=== PATIENT | male | born 1980 | race Caucasian/White ===

== ENCOUNTER 2020-11-30 23:14 | Emergency (ER) | payer SELFPAY ==
--- NOTE | 2020-11-30 23:18 | W.ED.GENAD ---
Discharge Plan Disposition Patient Disposition: HOME Condition: Good Discharge Details Clinical Impression: Opiate overdose Primary Care Provider: None,None ED Provider: Garrett Langston Home Meds and New Rx's Prescriptions: No Action No Known Home Meds RF: 0 Discharge Instructions Instructions: Naloxone (Into the nose) Additional Instructions: Please avoid using any opiates in the future as this may certainly lead to loss of life, permanent disability, or other concerning things. Please use the resources provided contact counseling and rehab services. If you notice any worsening of your symptoms, or any new symptoms such as vomiting, diarrhea, fever, chills, shortness of breath, chest pain, numbness, weakness, or fainting , please return immediately to the emergency department for reevaluation. Please follow up with your primary care provider as soon as possible for reassessment and reevaluation. As always, it was a pleasure participating in your medical care today. Medical Decision Making This is a 40-year-old male with past medical history of alcohol and drug abuse who presents today via EMS after accidental overdose. Per EMS the patient was found at his sister's house. He had just left to purposely go get some heroin which she injected IV. His sister found him not breathing, 911 was called. Police gave 8 mg of intranasal Narcan, by the time EMS arrived the patient was breathing mentating well. Patient also admits to some alcohol but denies any other drug use. He denies any suicidal or homicidal ideations at this time. He does state that he just wants to feel numb, just wants to feel nothing. He is otherwise a poor historian and not overweight forthcoming. No other complaints at this time. Physical exam is unremarkable. Patient is neurologically intact. He does appear mildly intoxicated. No evidence of respiratory depression at all. EMS and stated that the sister did not want him back at her house tonight. Patient is refusing all labs, IVs, and interventions. He states he does not want any help at this time. Patient was wanted by the plaster applicator and he was found to have no concerning possessions. We will breathalyzed the patient. Clinically he remained stable at this time. No clinical evidence of infectious etiology, vital notably stable. No clinical evidence of meningitis. No current clinical evidence of other significant overdose etiology at this time. Again patient is deemed stable currently clinically on medical screening exam, patient is refusing all other intervention otherwise. 1:44 AM Patient's laboratory work-up has returned. Relatively unremarkable. No white count, bandemia or left shift. Electrolytes are stable, renal function good. Salicylates are relatively benign at 4.6, acetaminophen negative. Urine drug screen negative aside for THC. Patient likely took synthetic fentanyl. Alcohol level was 106 at 2354. Patient remained stable. The patient has continued to refuse any other interventions. For the meantime we will let him sleep and rest in the ED, and discharge in the morning after reassessment. He has been offered Narcan to go. We will place an outpatient follow-up recommendation with [facility]. 5:17 AM Patient was reassessed, he remains neurologically intact. Shows no signs of intoxication clinically, or any signs of residual drug effect. Patient denies any homicidal or suicidal ideations. I did offer Narcan to go home. I did offer to contact someone for him, and he requested that I call no one. Patient remained stable. Patient will be discharged home. The patient is able to speak clearly. There is no demonstration of any slurring of speech. There is evidence of clear decision making capacity. Patient is able to ambulate well without any difficulty. There are no signs of ataxia or stumbling motions. I have extensively reviewed the treatment plan and discharge instructions with the patient. I have addressed all patient concerns at this time. The patient was made aware of what symptoms to monitor for that would warrant a return to the emergency department. Discussed the plan with the patient, they demonstrate verbal understanding and agreement with our assessment and plan at this time. The documentation in this chart was dictated using [employer] dictation software. Please excuse any dictation errors. HPI General Date/Time Provider Initiated Documentation: 12/01/20 01:02. HPI Narrative: This is a 40-year-old male with past medical history of alcohol and drug abuse who presents today via EMS after accidental overdose. Per EMS the patient was found at his sister's house. He had just left to purposely go get some heroin which she injected IV. His sister found him not breathing, 911 was called. Police gave 8 mg of intranasal Narcan, by the time EMS arrived the patient was breathing mentating well. Patient also admits to some alcohol but denies any other drug use. He denies any suicidal or homicidal ideations at this time. He does state that he just wants to feel numb, just wants to feel nothing. He is otherwise a poor historian and not overweight forthcoming. No other complaints at this time. Related Data Home Medications Medication Instructions Recorded Confirmed Unknown [No Known Home Meds] 12/01/20 12/01/20 Allergies Allergy/AdvReac Type Severity Reaction Status Date / Time No Known Allergies Allergy Unverified 12/01/20 01:46 Review of Systems All systems reviewed & are unremarkable except as noted in HPI and below PFSH Social History Smoking/Tobacco Use Status: Current every day Tobacco Type: cigarettes Smoking risk assessment performed?: Yes Alcohol Intake: current Alcohol Intake frequency: a few times a week Drug use: Occasionally Substance use type: heroin Additional Social history: Currently homeless, Sister will not let patient stay with her. Exam Narrative Exam Narrative: 1.Const: Well-nourished, Well-developed, appearing stated age 2.Eyes: PERRL, no conjunctival injection, and symmetrical lids. 3.ENT: Atraumatic external nose and ears. Dry MM. Neck: Symmetric, trachea midline, No thyromegaly. 4.CVS: +S1/S2, No murmurs or gallops. Peripheral pulses 2+ and equal in all extremities. Brisk capillary refill in all extremities. 5.RESP: Unlabored respiratory effort. Clear to auscultation bilaterally. No wheezes rales or rhonchi 6.GI: Soft, Nontender/Nondistended, No hepatosplenomegaly. No guarding or rebound. 7.MSK: Normocephalic/Atraumatic, Extremities w/o deformity or ttp No cyanosis or clubbing, Normal movement of all extremities 8.Skin: Warm, Dry. No rashes or lesions. 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 Sensation grossly intact, no focal neurologic deficits. 10.Psych: (AAO) x3. Somewhat flat affect. Appears mildly intoxicated
[2020-11-30 23:20] VITALS: BP 120/75; PULSE 95; RESP 18; TEMP 36.6; O2SAT 99
[2020-11-30] MEDS: Ondansetron O.D.T. 4 MG TABEF PO (23:40)
[2020-12-01] VITALS (8 sets, daily range): BP systolic 108–115; BP diastolic 50–65; PULSE 80–89; RESP 16–19; TEMP 36.5; O2SAT 95–98
--- NOTE | 2020-12-01 | NUR.NOTE ---
Nursing Note:Patient was wand'ed by security, no dangerous objects found . Patient unable to blow long enough to do breathalyzer. Patient refused lab draw earlier but now agrees to it. States he just needs to rest. Per EMS sister will not let patient go back to her house. Patient has been homeless.
[2020-12-01 00:08] LABS: Abs Immature Grans 0.03 10^3/uL (0.0-0.06); Absolute Basophil Count 0.05 10^3/uL (0.0-0.2); Absolute Eosinophil Count 0.21 10^3/uL (0.0-0.7); Absolute Lymphocyte Count 3.49 10^3/uL (1.2-3.4); Absolute Monocyte Count 0.89 10^3/uL (0.1-0.8); Absolute Neutrophil Count 5.05 10^3/uL (1.2-6.7); Basophils % 0.5; Eosinophils % 2.2; HCT 42.6 % (40.0-50.0); HGB 14.1 g/dL (13.5-17.5); Immature Grans % 0.3; Lymphocytes % 35.9; MCH 29.4 pg (27.0-33.0); MCHC 33.1 % (32.0-36.0); MCV 88.9 fL (80-95); Monocytes % 9.2; Neutrophils % 51.9; Nucleated RBC 0 %; Platelet Count 309 10^3/uL (130-400); RBC 4.79 10^6/uL (4.36-5.78); RDW 12.4 % (11.8-14.1); RDW-SD 40.8 fL; WBC 9.72 10^3/uL (4.4-10.8)
[2020-12-01 00:16] LABS: ALT 26 U/L (16-63); AST 41 U/L (15-37); Alkaline Phosphatase 67 U/L (46-116); Anion Gap 10.6 mmol/L (3-11); BUN 7 mg/dL (7-18); Bilirubin, Total 0.2 mg/dL (0.2-1.0); CO2 28.4 mmol/L (21.0-32.0); CREATININE 1.3 mg/dL (0.70-1.30); Calcium 8.8 mg/dL (8.5-10.1); Chloride 107 mmol/L (98-107); ETHANOL BLOOD 106.5 mg/dL (<3); Glucose 94 mg/dL (74-106); Potassium 4.2 mmol/L (3.5-5.1); Sodium 146 mmol/L (136-145); Total Protein 6.8 g/dL (6.4-8.2)
[2020-12-01 00:24] LABS: Acetaminophen < 2 ug/mL (10-30); Salicylate 4.6 mg/dL (<2.8)
[2020-12-01 01:36] LABS: *AMPHETAMINES SCREEN URINE Negative (Negative); *BARBITURATES SCREEN URINE Negative (Negative); *BENZODIAZEPINES SCREEN URINE Negative (Negative); Cannabinoids THC Positive (Negative); Cocaine Screen,Urine Negative (Negative); METHADONE URINE SCREEN Negative (Negative); OPIATES URINE SCREEN Negative (Negative)
[2020-12-01 01:38] LABS: Tricyclic Antidepressants Negative (Negative)
--- NOTE | 2020-12-01 01:47 | NUR.NOTE ---
Nursing Note:Patient has now removed the monitor and does not want it put back on. Discussed POC with Dr. Langston, will let patient sleep and D/C in AM prior to shift change.
--- NOTE | 2020-12-01 06:15 | NUR.NOTE ---
Nursing Note: Patient was given [facility] 2 Pack of Narcan TO GO at no charge. Paperwork was filled out as much as possible
== END 2020-12-01 06:06 | disposition home or self-care (01) ==
PROVIDERS: Emergency Provider Student in an Organized Health Care Education/Training Program
DX: T40.1X1A Poisoning by heroin, accidental (unintentional), initial encounter (principal)
CPT/HCPCS: 36415; 80053; 80307; 99285; 80320; 80329; 85025; 99283

== ENCOUNTER 2020-12-01 11:43 | Emergency (ER) | payer SELFPAY ==
[2020-12-01 11:47] VITALS: BP 133/84; PULSE 81; RESP 16; TEMP 36.6; O2SAT 98
--- NOTE | 2020-12-01 11:47 | ED.GENADUL_ITS ---
Discharge Plan Disposition Patient Disposition: HOME Condition: Stable Discharge Details Clinical Impression: Major depression, Opiate addiction Primary Care Provider: None,None ED Provider: Yari Monteiro Home Meds and New Rx's Prescriptions: No Action No Known Home Meds RF: 0 Discharge Instructions Instructions: Depression (ED) Additional Instructions: Follow-up with [facility] human services regarding plans for possible rehab at [facility] or for counseling and therapy and potential medication management for depression or substance abuse. Follow-up with the [facility] instructional technology coach as directed. Return immediately to the emergency department if you develop any worsening or new concerning symptoms. Discharge Data Discharge Date/Time-TO BE ENTERED AT DEPARTURE: 12/01/20 16:29 Discharge Physician: Yari Monteiro Medical Decision Making 1155 -- 40-year-old male with a history of depression and opiate overdose this morning for which he was seen in the ED presents for suicidal thoughts for the past few years and feeling suicidal this morning with a plan to overdose intentionally on opiates before his sister found him and EMS gave Narcan. Patient states he was brought here by his family due to their concern for his depression, opiate use and suicide attempt this morning. Patient states he is voluntary and open to staying if recommended. Vitals within normal limits. Patient is awake and alert and does not appear intoxicated. Screening labs obtained and unremarkable. Alcohol level negative. UDS positive for THC. Will call mental health for evaluation. 1330 -- Case discussed with Juan for mental health. -She states patient is denying that he is suicidal and would rather not pursue inpatient hospitalization. She is going to attempt to see if there are any care beds available. Patient states his cell phone is at his sister's house and she kicked him out of there. Discussed with care management and they will attempt to reach his sister or other family members. Discussed again with Juan Elizabeth --she spoke with family members who state they are concerned about patient's mental wellbeing and concerned that he may have schizophrenia. They are willing to take patient home this weekend if possible. Juan is going to pursue possible placement to [place], whether as an inpatient if pt willing or as an outpatient if he is not willing to stay. I attempted to speak with patient in the room and he was asleep. I awoke patient and requested that he place a mask. Patient then refused to open his eyes and answer my questions. When I tapped patient on his knee and attempted to wake him he slapped my hand away and said do not touch me . This was discussed with Juan Elizabeth who will discuss with Yuko whether an EE needs to be completed. 153 -- Juan he states that there are not enough indications to hold patient for an EE. She is attempting to reach [facility] to speak to patient. Patient is demanding to have his clothes. He was yelling at staff to get his stuff and a code reinier was called. He was reevaluated again in the doorway and was calm and cooperative and code hills cleared without any need for physical or pharmacological intervention. He states he is currently not suicidal and states he did not attempt to kill himself with his drug overdose this morning. He is declining to speak to the instructional technology coach who is now currently here in the ED. Patient was given his clothes and advised to follow-up with [facility] instructional technology coach. Mental health and care management will also follow-up with patient and potentially referral to [facility] or [facility]. Pt states he is going to [facility] at his uncle's house. Medical Records Medical records reviewed: Yes I reviewed the patient's medical records. Lab Data Lab results reviewed: Yes I reviewed the patient's lab results. Labs: Laboratory Tests Range/Units 12/01/20 12/01/20 12/01/20 12:10 12:10 12:20 WBC (4.4-10.8) 10^3/uL RBC (4.36-5.78) 10^6/uL Hgb (13.5-17.5) g/dL Hct (40.0-50.0) % MCV (80-95) fL MCH (27.0-33.0) pg MCHC (32.0-36.0) % RDW (11.8-14.1) % Plt Count (130-400) 10^3/uL MPV (8.0-11.0) fL Immature Gran % Neutrophils % Lymphocytes % Monocytes % Eosinophils % Basophils % Nucleated RBC % % Absolute Neutrophils (1.2-6.7) 10^3/uL Absolute Lymphocytes (1.2-3.4) 10^3/uL Absolute Monocytes (0.1-0.8) 10^3/uL Absolute Eosinophils (0.0-0.7) 10^3/uL Absolute Basophils (0.0-0.2) 10^3/uL Sodium (136-145) mmol/L 141 Potassium (3.5-5.1) mmol/L 4.0 Chloride (98-107) mmol/L 102 Carbon Dioxide (21.0-32.0) mmol/L 30.0 Anion Gap (3-11) mmol/L 9.0 BUN (7-18) mg/dL 5 L Creatinine (0.70-1.30) mg/dL 1.2 Estimated GFR/1.73 m2 (mL/min/1.73m2) >= 60.00 Glucose (74-106) mg/dL 116 H Calcium (8.5-10.1) mg/dL 9.2 Total Bilirubin (0.2-1.0) mg/dL 0.5 AST (15-37) U/L 48 H ALT (16-63) U/L 29 Alkaline Phosphatase (46-116) U/L 68 Total Protein (6.4-8.2) g/dL 7.2 Albumin (3.4-5.0) g/dL 4.3 Urine Color (Yellow) Yellow Urine Clarity (Clear) Clear Urine pH (5-8) 7.5 Ur Specific [place] (1.005-1.025) 1.020 Urine Protein (Negative) mg/dL Negative Urine Ketones (Negative) mg/dL Negative Urine Blood (Negative) Negative Urine Nitrite (Negative) Negative Urine Bilirubin (Negative) Negative Urine Urobilinogen (Up TO 0.2) EU/dL 1.0 H Ur Leukocyte Esterase (Negative) Negative Urine Glucose (Negative) mg/dL Negative Urine Opiates Screen (Negative) Negative Urine Methadone Screen (Negative) Negative Ur Barbiturates Screen (Negative) Negative Ur Tricyclics Screen (Negative) Negative Ur Amphetamines Screen (Negative) Negative U Benzodiazepines Scrn (Negative) Negative Urine Cocaine Screen (Negative) Negative Ur THC Screen (Negative) Positive A Ethyl Alcohol (<3) mg/dL 3.0 Range/Units 12/01/20 12:20 WBC (4.4-10.8) 10^3/uL 11.04 H RBC (4.36-5.78) 10^6/uL 4.96 Hgb (13.5-17.5) g/dL 14.6 Hct (40.0-50.0) % 43.9 MCV (80-95) fL 88.5 MCH (27.0-33.0) pg 29.4 MCHC (32.0-36.0) % 33.3 RDW (11.8-14.1) % 12.5 Plt Count (130-400) 10^3/uL 320 MPV (8.0-11.0) fL 8.8 Immature Gran % 0.2 Neutrophils % 47.9 Lymphocytes % 38.9 Monocytes % 11.1 Eosinophils % 1.4 Basophils % 0.5 Nucleated RBC % % 0 Absolute Neutrophils (1.2-6.7) 10^3/uL 5.29 Absolute Lymphocytes (1.2-3.4) 10^3/uL 4.29 H Absolute Monocytes (0.1-0.8) 10^3/uL 1.23 H Absolute Eosinophils (0.0-0.7) 10^3/uL 0.15 Absolute Basophils (0.0-0.2) 10^3/uL 0.06 Sodium (136-145) mmol/L Potassium (3.5-5.1) mmol/L Chloride (98-107) mmol/L Carbon Dioxide (21.0-32.0) mmol/L Anion Gap (3-11) mmol/L BUN (7-18) mg/dL Creatinine (0.70-1.30) mg/dL Estimated GFR/1.73 m2 (mL/min/1.73m2) Glucose (74-106) mg/dL Calcium (8.5-10.1) mg/dL Total Bilirubin (0.2-1.0) mg/dL AST (15-37) U/L ALT (16-63) U/L Alkaline Phosphatase (46-116) U/L Total Protein (6.4-8.2) g/dL Albumin (3.4-5.0) g/dL Urine Color (Yellow) Urine Clarity (Clear) Urine pH (5-8) Ur Specific [place] (1.005-1.025) Urine Protein (Negative) mg/dL Urine Ketones (Negative) mg/dL Urine Blood (Negative) Urine Nitrite (Negative) Urine Bilirubin (Negative) Urine Urobilinogen (Up TO 0.2) EU/dL Ur Leukocyte Esterase (Negative) Urine Glucose (Negative) mg/dL Urine Opiates Screen (Negative) Urine Methadone Screen (Negative) Ur Barbiturates Screen (Negative) Ur Tricyclics Screen (Negative) Ur Amphetamines Screen (Negative) U Benzodiazepines Scrn (Negative) Urine Cocaine Screen (Negative) Ur THC Screen (Negative) Ethyl Alcohol (<3) mg/dL HPI General Mode of arrival: ambulatory . Date/Time Provider Initiated Documentation: 12/01/20 11:44 . Limitations to Documentation: no limitations . Information obtained by: patient . HPI Narrative: Patient is a 40-year-old male with a history of depression and opiate abuse who presents for depression and suicidal ideation. Patient was seen here very early this morning for opiate overdose and was given Narcan in the field, observed and was awake and alert prior to discharge. Per the provider notes, patient denied any suicidal ideation at that time but states he is presenting today at the encouragement and advice of his family for his depression. Patient is now stating that he intentionally overdosed earlier this morning in an attempt to kill himself. He does admit to a previous suicide attempt several years ago with opiate overdose. He states he has been feeling depressed since his mother's 3 years ago. Patient states he was on his sister's porch this morning when he smoked fentanyl and his sister found him unresponsive and not breathing and he was given Narcan per EMS. Patient arrived to the ED awake and alert. Patient states he drinks alcohol occasionally and that he drinks 3 beers last night. Also smokes marijuana daily. He denies any homicidal ideation. He denies any visual or auditory hallucinations. Related Data Home Medications Medication Instructions Recorded Confirmed Unknown [No Known Home Meds] 12/01/20 12/01/20 Allergies Allergy/AdvReac Type Severity Reaction Status Date / Time No Known Allergies Allergy Unverified 12/01/20 11:56 General LEXI: 2 Review of Systems All systems reviewed & are unremarkable except as noted in HPI and below Constitutional Constitutional: Reports as per HPI, Denies chills and Denies fever(s) Eyes Eyes: Denies blurry vision ENT Ears, Nose, Mouth, and Throat: Denies dizziness, Denies sore throat and Denies throat swelling Cardiovascular Cardiovascular: Denies chest pain and Denies dyspnea Respiratory Respiratory: Denies cough and Denies dyspnea Gastrointestinal Gastrointestinal: Denies abdominal pain, Denies diarrhea and Denies vomiting Genitourinary Genitourinary: Denies hematuria and Denies dysuria Musculoskeletal Musculoskeletal: Denies back pain and Denies numbness Integumentary/Breasts Skin/Breast: Denies lesions and Denies rash Neurologic Neurologic: Denies dizziness, Denies localized weakness and Denies numbness Psychiatric Psychiatric: Reports depression and Reports suicidal ideation Allergic/Immunologic Allergic/Immunologic: Denies throat swelling [facility] Medical History (Updated 12/01/20 @ 16:06 by Yari Monteiro DO) Depression Opiate overdose Surgical History (Updated 12/01/20 @ 12:16 by Yari Monteiro DO) No significant past surgical history Social History Smoking/Tobacco Use Status: Current every day Tobacco Type: cigarettes Smoking risk assessment performed?: Yes Alcohol Intake: current Alcohol Intake frequency: a few times a week Drug use: Occasionally Substance use type: marijuana, crack/cocaine, heroin and opiates Details: last fentanyl 0030 this am Additional Social history: Currently homeless, Sister will not let patient stay with her. Exam Const General: cooperative and no acute distress Orientation: alert, awake and oriented x3 HENMT Head: normal to inspection Face and sinus: normal facial exam Eyes General: appearance normal, both eyes and all related structures Pupils: PERRL EOM: EOM intact bilaterally Neck Neck: normal visual inspection and No submandibular swelling Lymphatic: no lymphadenopathy noted Chest Chest: normal inspection of the chest and no tenderness Resp Effort & Inspection: normal respiratory effort and able to speak in complete sentences Auscultation: clear to auscultation bilaterally Cardio Rate: regular rate Rhythm: regular rhythm GI Inspection: normal to inspection Palpation: soft, not firm, not rigid and nontender Auscultation: normal bowel sounds Skin General skin exam: no rashes or lesions noted Neuro General: patient alert, patient awake and patient oriented x3 Cognition: normal cognition Speech: speech normal Motor: muscle tone normal throughout Sensory Exam: no sensory deficits noted Extrem General: normal to inspection, full ROM, capillary refill normal, no calf tenderness bilaterally and no edema Psych Appearance: grossly normal Mental Status: mental status grossly normal Speech and Movement: speech and movement normal Affect: normal affect
[2020-12-01 12:16] LABS: Bilirubin Negative (Negative); Blood Negative (Negative); Clarity Clear (Clear); Glucose Negative (Negative); Ketones Negative (Negative); Leukocyte Esterase Negative (Negative); Nitrite Negative (Negative); pH 7.5 (5-8)
[2020-12-01 12:24] LABS: Abs Immature Grans 0.02 10^3/uL (0.0-0.06); Absolute Basophil Count 0.06 10^3/uL (0.0-0.2); Absolute Eosinophil Count 0.15 10^3/uL (0.0-0.7); Absolute Neutrophil Count 5.29 10^3/uL (1.2-6.7); Basophils % 0.5; Eosinophils % 1.4; HCT 43.9 % (40.0-50.0); HGB 14.6 g/dL (13.5-17.5); Immature Grans % 0.2; Lymphocytes % 38.9; MCH 29.4 pg (27.0-33.0); MCHC 33.3 % (32.0-36.0); MCV 88.5 fL (80-95); MPV 8.8 fL (8.0-11.0); Monocytes % 11.1; Neutrophils % 47.9; Nucleated RBC 0 %; Platelet Count 320 10^3/uL (130-400); RBC 4.96 10^6/uL (4.36-5.78); RDW 12.5 % (11.8-14.1); RDW-SD 40.5 fL; WBC 11.04 10^3/uL (4.4-10.8)
[2020-12-01 12:32] LABS: Absolute Lymphocyte Count 4.29 10^3/uL (1.2-3.4); Absolute Monocyte Count 1.23 10^3/uL (0.1-0.8)
[2020-12-01 12:37] LABS: ALT 29 U/L (16-63); AST 48 U/L (15-37); Albumin 4.3 g/dL (3.4-5.0); Alkaline Phosphatase 68 U/L (46-116); BUN 5 mg/dL (7-18); Bilirubin, Total 0.5 mg/dL (0.2-1.0); CREATININE 1.2 mg/dL (0.70-1.30); Calcium 9.2 mg/dL (8.5-10.1); Chloride 102 mmol/L (98-107); Glucose 116 mg/dL (74-106); Sodium 141 mmol/L (136-145); Total Protein 7.2 g/dL (6.4-8.2)
[2020-12-01 12:38] LABS: *AMPHETAMINES SCREEN URINE Negative (Negative); *BARBITURATES SCREEN URINE Negative (Negative); *BENZODIAZEPINES SCREEN URINE Negative (Negative); Cannabinoids THC Positive (Negative); Cocaine Screen,Urine Negative (Negative); METHADONE URINE SCREEN Negative (Negative); OPIATES URINE SCREEN Negative (Negative); Tricyclic Antidepressants Negative (Negative)
--- NOTE | 2020-12-01 13:27 | NUR.NOTE ---
pt is speaking via zoom to [place] Note:
--- NOTE | 2020-12-01 15:09 | NUR.NOTE ---
Pt lying on left side in bed. PRIYANK called to speak to pt. Pt not answering when his name is called. Touched his knee to wake him if sleeping, pt did not open eyes and loudly states do not touch me. advised him PRIYANK was on the phone to speak to him, refused to answer again. Dr Thania elena.
--- NOTE | 2020-12-01 15:43 | NUR.NOTE ---
patient got very upset when doctor and nurse touched him to try to talk to him and to talk to nk . states dont touch me Nursing Note:
--- NOTE | 2020-12-01 16:07 | NUR.NOTE ---
theron field called when pt came to the door demanding his clothes , verbal de escalation was used , pt did respond and backed down but he still demanded his clothes . he mello that he planned to walk to [facility] to his uncles house . he spoke with the ER MD and was given back his clothes Nursing Note:
--- NOTE | 2020-12-01 16:18 | NUR.NOTE ---
pt bryant lentz was notified by phone that pt has left the hospitalNursing Note:
--- NOTE | 2020-12-01 19:11 | PDOC.MHCN_ITS ---
Date of service: 12/01/20 Time of Service: 12:52 Mental Health Crisis Note Presenting Issue How did you arrive at the ED and why did you come: Patient arrived at the ER due to having thoughts of SI. Precipitating Factors Patient shared that he wanted to get help for substance use but was not willing to go inpatient due to being locked in. Patient denies SI/HI to this fiction and nonfiction writer prose and stated that he doesn't want to anymore Patent stated this mornings overdose scared him. Patient agreed to complete opening paperwork with this fiction and nonfiction writer prose. Patient shared that he does not have a place to live because he was kicked out of his sisters home today. this fiction and nonfiction writer prose discussed other supports patient may have, patient was not able to come up with other supports as he stated he did not have his phone with him. This fiction and nonfiction writer prose asked that patient work with career transition specialist to get contact info for family so we can create a plan for safety and discuss how to get patient the support he needs. This fiction and nonfiction writer prose planned to contact community supports and will connect with patient after getting contact numbers. This fiction and nonfiction writer prose spoke with patients doctor and found out that client had family that was willing to support him as long as he was going to get help as they had many other mental health concerns for patient, but nothing documented. This fiction and nonfiction writer prose tried to speak with patient again to discuss the possibility of [facility] for med evaluation. Patient stated he would not talk to this fiction and nonfiction writer prose. when the doctor when in to speak with him he slapped her hand away and stated don't talk to me This fiction and nonfiction writer prose and the doctor spoke about EE, this fiction and nonfiction writer prose shared that at this time we don't have enough for and EE.landscaping manager shared that Daysi mckenzie [facility] was coming out to see patient, this fiction and nonfiction writer prose and doctor discussed waiting to see if patient would speck with recovery before moving forward with any plans. Patients doctor and career transition specialist agreed. This fiction and nonfiction writer prose called back hour later to check in and see if any progress was made. This fiction and nonfiction writer prose was informed that patient had been discharged and went home with his Uncle. (no safety plan was made by this fiction and nonfiction writer prose before patient left.) Disposition BEHAVIOR: cooperative EYE CONTACT: good MOOD: calm AFFECT: broad APPETITE: poor SLEEP(trouble falling/staying asleep: doesnt sleep Plan Patient was discharged with out this writers knowledge. Signature Clinician's Name/Title: Juan PEREZ
--- NOTE | 2020-12-01 19:11 | PDOC.MHCN ---
Date of service: 12/01/20 Time of Service: 12:52 Mental Health Crisis Note Presenting Issue How did you arrive at the ED and why did you come: Patient arrived at the ER due to having thoughts of SI. Precipitating Factors Patient shared that he wanted to get help for substance use but was not willing to go inpatient due to being locked in. Patient denies SI/HI to this journalists and other writers and stated that he doesn't want to anymore Patent stated this mornings overdose scared him. Patient agreed to complete opening paperwork with this journalists and other writers. Patient shared that he does not have a place to live because he was kicked out of his sisters home today. this journalists and other writers discussed other supports patient may have, patient was not able to come up with other supports as he stated he did not have his phone with him. This journalists and other writers asked that patient work with ocular care technician to get contact info for family so we can create a plan for safety and discuss how to get patient the support he needs. This journalists and other writers planned to contact community supports and will connect with patient after getting contact numbers. This journalists and other writers spoke with patients doctor and found out that client had family that was willing to support him as long as he was going to get help as they had many other mental health concerns for patient, but nothing documented. This journalists and other writers tried to speak with patient again to discuss the possibility of [facility] [place] for med evaluation. Patient stated he would not talk to this journalists and other writers. when the doctor when in to speak with him he slapped her hand away and stated don't talk to me This journalists and other writers and the doctor spoke about EE, this journalists and other writers shared that at this time we don't have enough for and EE.land manager shared that Daysi mckenzie [facility] was coming out to see patient, this journalists and other writers and doctor discussed waiting to see if patient would speck with recovery before moving forward with any plans. Patients doctor and ocular care technician agreed. This journalists and other writers called back hour later to check in and see if any progress was made. This journalists and other writers was informed that patient had been discharged and went home with his Uncle. (no safety plan was made by this journalists and other writers before patient left.) Disposition BEHAVIOR: cooperative EYE CONTACT: good MOOD: calm AFFECT: broad APPETITE: poor SLEEP(trouble falling/staying asleep: doesnt sleep Plan Patient was discharged with out this writers knowledge. Signature Clinician's Name/Title: Juan PEREZ
== END 2020-12-01 16:29 | disposition home or self-care (01) ==
PROVIDERS: Emergency Provider Physician Assistant
DX: F32.9 Major depressive disorder, single episode, unspecified (principal); F11.20 Opioid dependence, uncomplicated
CPT/HCPCS: 80053; 80307; 99284; 80320; 81003; 85025; 99283

== ENCOUNTER 2023-12-21 08:48 | Emergency (ER) | payer MEDICAID, SELFPAY ==
[2023-12-21 08:54] VITALS: BP 96/65; PULSE 90; RESP 16; TEMP 36.7; O2SAT 99
[2023-12-21 09:33] LABS: Bilirubin Small (Negative); Blood Negative (Negative); Clarity Clear (Clear); Glucose Negative (Negative); Ketones 15 mg/dL (Negative); Leukocyte Esterase Negative (Negative); Nitrite Negative (Negative); Specific Gravity >= 1.030 (1.005-1.025); Urobilinogen 0.2 mg/dL (Up to 0.2)
--- NOTE | 2023-12-21 09:33 | W.ED.GENAD ---
Discharge Plan Disposition Patient Disposition: Home Condition: Stable Discharge Details Clinical Impression: Concern about STI in male without diagnosis, Abnormal penile discharge Primary Care Provider: None,None ED Provider: Brandon Daniels Home Meds and New Rx's Prescriptions: New doxycycline hyclate 100 mg capsule 100 mg PO BID Qty: 14 0RF Discharge Instructions Instructions: Sexually Transmitted Diseases (ED) Additional Instructions: Please follow-up with a primary care physician. Virgie Styles NP is available for followup. Please call to schedule an appointment. Please follow-up with urology if symptoms persist. Return to the ER immediately for any worsening or new concerning symptoms. Referrals: [facility] [Provider Group] Virgie Styles [NURSE PRACTITIONER] - [facility] General Date/Time Provider Initiated Documentation: 12/21/23 09:06. Related Data Home Medications Medication Instructions Recorded Confirmed doxycycline hyclate 100 mg capsule 100 mg PO BID #14 caps 12/21/23 Previous Rx's Medication Instructions Recorded doxycycline hyclate 100 mg capsule 100 mg PO BID #14 caps 12/21/23 Allergies Allergy/AdvReac Type Severity Reaction Status Date / Time No Known Allergies Allergy Unverified 12/01/20 11:56 General Stated Complaint: GenMedical LEXI: 4 Course Vital Signs Vital signs: Vital Signs Temperature 36.7 C 12/21/23 08:54 Pulse 90 12/21/23 08:54 Respiratory Rate 16 12/21/23 08:54 Blood Pressure 96/65 L 12/21/23 08:54 Pulse Oximetry 99 12/21/23 08:54 Temperature 36.7 C 12/21/23 08:54 Temperature Source Tympanic 12/21/23 08:54 Pulse 90 12/21/23 08:54 Respiratory Rate 16 12/21/23 08:54 Blood Pressure 96/65 L 12/21/23 08:54 Blood Pressure Position Sitting 12/21/23 08:54 Pulse Oximetry 99 12/21/23 08:54 Oxygen Delivery Method Room Air 12/21/23 08:54 Oxygen Flow Rate 0 12/21/23 08:54 Pain Level 0 12/21/23 08:54 Medical Decision Making 43yo male here with penile discharge for 3 years, concern for chlamydia. No testicular swelling or inflammation on examination. Plan to screen for GC/chlamydia. No mechanism to communicate with patient post discharge. Plan to initiate treatment with doxycycline, ceftriaxone, and metronidazole. Quality:SDOH Health Related Social Needs: No Data to Display PFSH All Active Problems (Updated 12/21/23 @ 09:43 by Brandon Daniels MD) Abnormal penile discharge (Acute) Concern about STI in male without diagnosis (Acute) Opiate addiction (Acute) Major depression (Chronic) Medical History (Updated 12/21/23 @ 09:43 by Brandon Daniels MD) Depression Opiate overdose Surgical History (Updated 12/01/20 @ 12:16 by Yari Monteiro DO) No significant past surgical history Social History Smoking/Tobacco Use Status: Current every day Tobacco Type: cigarettes Smoking risk assessment performed?: Yes Alcohol Intake: current Alcohol Intake frequency: a few times a week Drug use: Occasionally Substance use type: marijuana, crack/cocaine, heroin and opiates Details: last fentanyl 0030 this am Additional Social history: Currently homeless, Sister will not let patient stay with her.
[2023-12-21 09:45] LABS: Bacteria Negative HPF (Negative); C & S Indicated? No; Casts 0-2 Hyaline LPF (Negative); Crystals Many Calcium Oxalate HPF (Negative); Epithelial Cells Rare HPF (Negative); Mucus Heavy (Negative); RBC Negative HPF (0-2); WBC Negative HPF (0-5)
[2023-12-21] MEDS: cefTRIAXone 500 MG VIAL IM (10:04)
[2023-12-21] MEDS: Doxycycline Hyclate 100 MG CAP PO (10:04)
[2023-12-21] MEDS: metroNIDAZOLE 500 MG TAB 2000 MG PO (10:04)
--- NOTE | 2023-12-21 10:20 | NUR.NOTE ---
Referral faxed to Virgie Styles, telephone call provider; for establish care, penile discharge. Patient will call for appt due to not having a phone. Nursing Note:
[2023-12-21 11:07] VITALS: BP 96/65; PULSE 90; RESP 15; RESP 16; TEMP 36.7; O2SAT 99
[2023-12-22 15:18] LABS: Chlamydia Result Negative (Negative); GC Result Negative (Negative)
== END 2023-12-21 11:07 | disposition home or self-care (01) ==
LOC: ER 09:43
PROVIDERS: Emergency Provider Student in an Organized Health Care Education/Training Program
DX: R36.9 Urethral discharge, unspecified (principal); F17.210 Nicotine dependence, cigarettes, uncomplicated; Z59.00 Homelessness unspecified
CPT/HCPCS: 87491; 87591; 99283; 81003; 81015; J0696

== ENCOUNTER 2024-05-15 17:19 | Emergency (ER) | payer MEDICAID, SELFPAY ==
[2024-05-15 17:21] VITALS: BP 130/77; PULSE 76; RESP 12; TEMP 36.7
--- NOTE | 2024-05-15 17:32 | ED.GENADUL_ITS ---
Discharge Plan Disposition Patient Disposition: Home Condition: Stable Discharge Details Clinical Impression: Dental infection, Poor dentition Primary Care Provider: Unknown,Unknown ED Provider: Tiffany Jennings Home Meds and New Rx's Prescriptions: New amoxicillin-pot clavulanate 875-125 mg tablet 1 tab PO Q12H 10 Days Qty: 20 0RF Discharge Instructions Instructions: Dental Pain (DC) Additional Instructions: You were seen in the emergency department today for evaluation of tooth pain and were found to have a dental infection. In our department you had a full physi aleta examination performed and I have provided you with antibiotics, which should be taken twice per day for the next 10 days or until your dentist tells you to stop. Please take all of this medication until it is gone, even if you start to feel better. For pain management you should use Tylenol and ibuprofen as the majority of your pain management, and I provided with you with a few oxycodone for breakthrough pain. Please use this medication with caution, as it can cause sedation and you should avoid driving when under the effects of this medication. You need to schedule an appointment with your dentist as soon as possible for definitive management and will likely need x-rays and a potential extraction of that tooth. You should return to the emergency department sooner if you develop fever or chills, nausea or vomiting that prevents you from taking your medications, or any other symptoms that cause you concern. Thank you for allowing us to be part of your care. HPI General Mode of arrival: ambulatory . Date/Time Provider Initiated Documentation: 05/15/24 17:21 . Limitations to Documentation: no limitations . Information obtained by: patient and old records reviewed . HPI Narrative: HPI: This is a 44-year-old male patient presenting for evaluation of dental pain. The patient reports that approximately a week ago he noted that his back tooth #30 was painful, felt looser than typical, and he has been trying to manage his pain at home with ibuprofen and aspirin. States that 2 days ago he noted that he was experiencing some swelling of his cheek. States that he tried to call his dentist but was not able to make an appointment and presented here for evaluation. The patient has been able to eat and drink and chew. He has not noted any visual changes or difficulty moving his eyes. He has not had fevers or chills, denies trismus, has full range of motion of his neck. This is an isolated complaint. Did not sustain injury to his teeth or mouth. Exam: Gen: Awake and alert, in no apparent distress HEENT: Non-icteric sclera, pupils equal and reactive at 4 mm bilaterally, EOMs are full and without nystagmus or evidence of entrapment. No visual acuity changes reported subjectively. The patient has tenderness with percussion of right bottom tooth #30, with overall poor dentition and evidence of dental carry disease. No discrete apical abscesses appreciated. The patient does have mild right-sided facial swelling without redness or induration, no trismus Neck: Supple, full range of motion of the neck, submandibular lymphadenopathy appreciated right side. No woody induration of the floor of the mouth noted Lungs: No apparent respiratory distress, normal respiratory effort. CV: Appears well perfused, strong distal pulses Abdomen: Non-distended MSK: Moves 4 extremities without apparent limitation in ROM Skin: Visualized skin without rashes, cyanosis. Neuro: Normal Gait, no obvious focal deficits or facial asymmetry. Speaks in full, clear sentences. Psych: Appropriate for situation. MDM: This is a 44-year-old male patient presenting for evaluation of dental pain. Differential includes but is not limited to dental infection, apical abscess was considered though not definitively visualized. I did consider deeper space infection, sinusitis, but am reassured against severe bacterial infection in this patient who is afebrile, not tachycardic, and systemically well. The patient has no evidence for retropharyngeal abscess, Ludewig's angina, meningitis. No neuro or visual deficit concerning for dural venous sinus thrombosis. ED Course: The patient was provided with a dose of Augmentin as well as Tylenol and oxycodone for pain management. At this time given his reassuring workup and his his hemodynamic stability I do not see an indication for laboratory studies or advanced imaging. I will provide the patient with a short course of oxycodone for breakthrough pain not responsive to conservative pain management strategies, and prescription for Augmentin. At this time, the patient has had a full medical evaluation and is safe for discharge to home. They are hemodynamically stable, ambulatory, and tolerating PO. They are understanding of the follow-up plan and return precautions. They left our facility without incident. Tiffany Jennings MD Related Data Home Medications ?Medication ?Instructions ?Recorded ?Confirmed amoxicillin 875 mg-potassium 1 tab PO Q12H 10 days #20 tabs 05/15/24 clavulanate 125 mg tablet Previous Rx's ?Medication ?Instructions ?Recorded amoxicillin 875 mg-potassium 1 tab PO Q12H 10 days #20 tabs 05/15/24 clavulanate 125 mg tablet Allergies Allergy/AdvReac Type Severity Reaction Status Date / Time No Known Allergies Allergy Unverified 05/15/24 17:23 General Stated Complaint: DentalOral LEXI: 4 Course Vital Signs Vital signs: Vital Signs Temperature 36.7 C 05/15/24 17:21 Pulse 76 05/15/24 17:21 Respiratory Rate 12 05/15/24 17:21 Blood Pressure 130/77 05/15/24 17:21 Temperature 36.7 C 05/15/24 17:21 Pulse 76 05/15/24 17:21 Respiratory Rate 12 05/15/24 17:21 Respiratory Effort Normal 05/15/24 17:24 Blood Pressure 130/77 05/15/24 17:21 Pain Level 8 05/15/24 17:21 Medical Decision Making Quality:SDOH Health Related Social Needs: No Data to Display PFSH All Active Problems (Updated 05/15/24 @ 17:34 by Tiffany Jennings MD) Poor dentition (Acute) Dental infection (Acute) Opiate addiction (Acute) Major depression (Chronic) Medical History (Updated 05/15/24 @ 17:34 by Tiffany Jennings MD) Depression Opiate overdose Surgical History (Updated 12/01/20 @ 12:16 by Yari Monteiro DO) No significant past surgical history Social History Smoking/Tobacco Use Status: Current every day Tobacco Type: cigarettes Smoking risk assessment performed?: Yes Alcohol Intake: current Alcohol Intake frequency: a few times a month Drug use: Occasionally Substance use type: marijuana, crack/cocaine, heroin and opiates Details: yesterday used crack laced with fentanyl 05/16/24 Housing: homeless Do you feel safe at home: Yes (Currently Homeless) Do you feel safe in your relationship?: Yes Additional Social history: Currently homeless, Sister will not let patient stay with her.
[2024-05-15] MEDS: Amox. 875/Clav. 125, 2 TABS/BTL 1 TAB PO (17:46)
[2024-05-15] MEDS: Amoxicillin 875/Clav. 125 TAB PO (17:46)
[2024-05-15] MEDS: Acetaminophen 500 MG TAB 1000 MG PO (17:46)
[2024-05-15] MEDS: oxyCODONE 5 MG TAB PO (17:46)
[2024-05-15 17:47] VITALS: BP 130/77; PULSE 76; RESP 12; TEMP 36.7; O2SAT 98
[2024-05-15 17:49] VITALS: BP 130/77; PULSE 76; RESP 12; TEMP 36.7; O2SAT 98
== END 2024-05-15 17:49 | disposition home or self-care (01) ==
PROVIDERS: Emergency Provider Emergency Medicine
DX: R68.84 Jaw pain (principal); K04.7 Periapical abscess without sinus
CPT/HCPCS: 99283

== ENCOUNTER 2024-10-17 11:23 | Emergency (ER) | payer MEDICAID, SELFPAY ==
[2024-10-17 11:36] VITALS: BP 139/83; PULSE 71; RESP 15; TEMP 36.8; O2SAT 99
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
[2024-10-17 12:21] LABS: Abs Immature Grans 0.02 10^3/uL (0.0-0.06); Absolute Basophil Count 0.03 10^3/uL (0.0-0.2); Absolute Eosinophil Count 0.13 10^3/uL (0.0-0.7); Absolute Lymphocyte Count 2.41 10^3/uL (1.2-3.4); Absolute Monocyte Count 0.91 10^3/uL (0.1-0.8); Absolute Neutrophil Count 4.85 10^3/uL (1.2-6.7); Basophils % 0.4 %; Eosinophils % 1.6 %; HCT 46.8 % (40.0-50.0); HGB 15.6 g/dL (13.5-17.5); Immature Grans % 0.2 %; Lymphocytes % 28.9 %; MCH 29.7 pg (27.0-33.0); MCHC 33.3 % (32.0-36.0); MCV 89 fL (80-95); MPV 8.9 fL (8.0-11.0); Monocytes % 10.9 %; Platelet Count 297 10^3/uL (130-400); RBC 5.26 10^6/uL (4.36-5.78); RDW 12.7 % (11.8-14.1); RDW-SD 41.8 fL; WBC 8.35 10^3/uL (4.4-10.8)
[2024-10-17 12:42] LABS: Bilirubin Negative (Negative); Blood Negative (Negative); Clarity Clear (Clear); Glucose Negative (Negative); Ketones Negative (Negative); Leukocyte Esterase Negative (Negative); Nitrite Negative (Negative); Specific Gravity 1.015 (1.005-1.025); Urobilinogen 0.2 mg/dL (Up to 0.2); pH 6.5 (5-8)
[2024-10-17 12:48] LABS: Salicylate < 2.8 mg/dL (<2.8)
[2024-10-17 12:49] LABS: Acetaminophen < 2 ug/mL (10-30)
[2024-10-17 12:51] LABS: ALT 39 U/L (16-63); AST 30 U/L (15-37); Albumin 4.1 g/dL (3.4-5.0); Alkaline Phosphatase 83 U/L (46-116); Anion Gap 7.5 mmol/L (3-11); BUN 12 mg/dL (7-18); Bilirubin, Total 0.38 mg/dL (0.2-1.0); CO2 32.5 mmol/L (21.0-32.0); CREATININE 1.1 mg/dL (0.70-1.30); Calcium 9.7 mg/dL (8.5-10.1); Chloride 102 mmol/L (98-107); ETHANOL BLOOD < 3.0 mg/dL (<10); Estimated GFR 85.42 (mL/min/1.73m2); Glucose 92 mg/dL (74-106); Potassium 4.4 mmol/L (3.5-5.1); Sodium 142 mmol/L (136-145); Total Protein 7.5 g/dL (6.4-8.2)
[2024-10-17 12:53] LABS: *AMPHETAMINES SCREEN URINE Negative (Negative); *BARBITURATES SCREEN URINE Negative (Negative); *BENZODIAZEPINES SCREEN URINE Negative (Negative); Cannabinoids THC Positive (Negative); Cocaine Screen,Urine Negative (Negative); METHADONE URINE SCREEN Negative (Negative); OPIATES URINE SCREEN Negative (Negative)
[2024-10-17 12:55] LABS: Tricyclic Antidepressants Negative (Negative)
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
--- NOTE | 2024-10-17 15:00 | CMSP_ITS ---
Date of service: 10/17/24 Time of Service: 15:00 Care Management Safety Plan Status Status: Voluntary Reason for Wait Reason for Wait: Inpatient Admission Safety Plan Safety Plan: VOLUNTARY FOR INPATIENT PSYCHIATRIC STABILIZATION.? Patient is appropriate in all interactions since arriving at [facility]; Pt has demonstrated appropriate coping and communication skills, has articulated his or her needs and concerns and is fully engaged during staff interactions. Safety plan has been established with patient, and care team, to adhere to patient goals, identify restrictions based on behavioral status, address nutrition, and determine allowed personal belongings, tools for hygiene and personal care. Determine level of activity including ambulation, level of superv ision, visitors, and determine privileges based on behaviors and level of engagement by pt. VOLUNTARY SAFETY PLAN: 1. Will remain on suicide precautions, in paper clothes 2. Will remain in Zone B under direct supervision of one-on-one staff at all times provided by [employer]; MISAEL, HANDKERCHIEF CUTTER copy lathe operator. 3. May have paper cups, plates, finger foods as well as a cardboard spoon with which to eat meals. 4. Follow [facility] Management of the Admitted Behavioral Health Patient policy. 5. Shower available in Zone B without restriction. 6. Personal belongings-soft items permitted at RN discretion. 7. Visitors- limited to professional supports at this time. 8. Activities: soft cart items approved per RN discretion. 9.? Bathroom available in Zone B without restriction. 10. Phone: limited to professional supports, using [facility] cordless phone at RN discretion. Due to VOLUNTARY status, if patient wishes to leave [facility], staff will contact [facility] Crisis Screener ([phone]) and Heavy Equipment Technician ([phone]) as soon as possible. In the event of elopement, notify [facility] Police ([phone]). Patient is currently voluntarily at [facility] and seeking inpatient admission when a bed becomes available. [facility] Frontline Mortgage Loan Closer will continue seeking placement. Please contact the Heavy Equipment Technician ([phone]) and [facility] Mortgage Loan Closer ([phone]) for any needed changes in the Safety Plan. Safety plan has been provided to interdepartmental care team.
--- NOTE | 2024-10-17 15:00 | PDOC.CMSAFE ---
Date of service: 10/17/24 Time of Service: 15:00 Care Management Safety Plan Status Status: Voluntary Reason for Wait Reason for Wait: Inpatient Admission Safety Plan Safety Plan: VOLUNTARY FOR INPATIENT PSYCHIATRIC STABILIZATION.? Patient is appropriate in all interactions since arriving at [facility]; Pt has demonstrated appropriate coping and communication skills, has articulated his or her needs and concerns and is fully engaged during staff interactions. Safety plan has been established with patient, and care team, to adhere to patient goals, identify restrictions based on behavioral status, address nutrition, and determine allowed personal belongings, tools for hygiene and personal care. Determine level of activity including ambulation, level of supervision, visitors, and determine privileges based on behaviors and level of engagement by pt. VOLUNTARY SAFETY PLAN: 1. Will remain on suicide precautions, in paper clothes 2. Will remain in Zone B under direct supervision of one-on-one staff at all times provided by [employer]; MISAEL, ACCOUNTING SUPERVISOR senior benefits specialist. 3. May have paper cups, plates, finger foods as well as a cardboard spoon with which to eat meals. 4. Follow [facility] Management of the Admitted Behavioral Health Patient policy. 5. Shower available in Zone B without restriction. 6. Personal belongings-soft items permitted at RN discretion. 7. Visitors- limited to professional supports at this time. 8. Activities: soft cart items approved per RN discretion. 9.? Bathroom available in Zone B without restriction. 10. Phone: limited to professional supports, using [facility] cordless phone at RN discretion. Due to VOLUNTARY status, if patient wishes to leave [facility], staff will contact [facility] Crisis Screener ([phone]) and Power Generation Equipment Repairer ([phone]) as soon as possible. In the event of elopement, notify [facility] Police ([phone]). Patient is currently voluntarily at [facility] and seeking inpatient admission when a bed becomes available. [facility] Frontline School Bus Inspector will continue seeking placement. Please contact the Power Generation Equipment Repairer ([phone]) and [facility] School Bus Inspector ([phone]) for any needed changes in the Safety Plan. Safety plan has been provided to interdepartmental care team.
--- NOTE | 2024-10-17 15:24 | PDOC.CMPRO ---
Date of service: 10/17/24 Time of Service: 15:24 Care Management Progress Note Progress Note Text Progress Note Text: CM met with staff in the ED to discuss Jhonny' plan of care. Per RN, Jhonny has been appropriate and polite in all interactions; he has taken a shower, and was watching a movie when CM was present in Zone B. Per [facility], Jhonny was screened in the community today with his peer support, Bryn, from [facility]. Jhonny is currently homeless, but has a tent that he is staying in; he reported that he doesn't mind the cold, and his homelessness is not increasing his SI/HI. He would not disclose a particular person that he is feeling homicidal toward, but did report that he feels HI toward the homeless population. Jhonny is voluntary, seeking inpatient psychiatric treatment. Referrals were sent to facilities by Cortney mendoza. Safety plan in place; his phone calls and visitors are limited to professional supports at this time. He reported to [facility] that his father is not a good support. SHERLEY will continue to follow. Social Determinants of Health Screening Will the Patient Participate in the Screening?: Declined to provide
--- NOTE | 2024-10-17 16:51 | W.ED.FU ---
Follow Up Plan: Handoff report received from GAY Martin daytime JOEL. Please see his note for full HPI, physical exam, and blood work. Jhonny has been resting comfortably throughout the evening, ate dinner without difficulty. Declines meds; does not have routinely prescribed meds. Handoff report given to Dr Baldwin, joshua attending.
--- NOTE | 2024-10-18 07:16 | W.EDPROG ---
Date of service: 10/18/24 Time of Service: 07:16 Medical Decision Making Patient seeking voluntary placement for thoughts of self-harm, no issues reported on prior shift and no new acute complaints. Will continue to monitor until safe disposition found Quality:SDOH Health Related Social Needs: No Data to Display Discharge Plan Discharge Details Chief Complaint: PsychEval Clinical Impression: Homicidal ideation Primary Care Provider: Unknown,Unknown ED Provider: Oliver Goodman
--- NOTE | 2024-10-18 10:04 | CMSP_ITS ---
Date of service: 10/18/24 Time of Service: 10:04 Care Management Safety Plan Status Status: Voluntary Reason for Wait Reason for Wait: Inpatient Admission (Awaiting inpatient Psych placement at an accepting facility) Safety Plan Safety Plan: VOLUNTARY FOR INPATIENT PSYCHIATRIC STABILIZATION.? Patient is appropriate in all interactions since arriving at [facility]; Pt has demonstrated appropriate coping and communication skills, has articulated his or her needs and concerns and is fully engaged during staff interactions. Safety plan has been established with patient, and care team, to adhere to patient goals, identify restrictions based on behavioral status, address nutrition, and determine allowed personal belongings, tools for hygiene and personal care. Determine level of activity including ambulation, level of supervision, visitors, and determine privileges based on behaviors and level of engagement by pt. VOLUNTARY SAFETY PLAN: 1. Will remain on suicide precautions, in paper clothes 2. Will remain in Zone B under direct supervision of one-on-one staff at all times provided by [employer]; MISAEL, LINUX NETWORK ENGINEER corset maker. 3. May have paper cups, plates, finger foods as well as a cardboard spoon with which to eat meals. 4. Follow [facility] Management of the Admitted Behavioral Health Patient policy. 5. Shower available in Zone B without restriction. 6. Personal belongings-soft items permitted at RN discretion. 7. Visitors- limited to professional supports at this time. 8. Activities: soft cart items approved per RN discretion. 9.? Bathroom available in Zone B without restriction. 10. Phone: limited to professional supports, using [facility] cordless phone at RN discretion. Due to VOLUNTARY status, if patient wishes to leave [facility], staff will contact [facility] Crisis Screener ([phone]) and Printing Press Machine Operator ([phone]) as soon as possible. In the event of elopement, notify [facility] Police ([phone]). Patient is currently voluntarily at [facility] and seeking inpatient admission when a bed becomes available. [facility] Frontline Loss Prevention Specialist will continue seeking placement. Please contact the Printing Press Machine Operator ([phone]) and [facility] Loss Prevention Specialist ([phone]) for any needed changes in the Safety Plan. Safety plan has been provided to interdepartmental care team.
--- NOTE | 2024-10-18 12:22 | ED.PROG_ITS ---
Date of service: 10/18/24 Time of Service: 12:22 Medical Decision Making Shortly after being told he was going to be transferred to [facility], he states that he wants to leave. Per [facility] he does this frequently. He is no longer having of any homicidal or suicidal ideations. I suspect this is partly a social reason for being here as he is homeless. Given he is no longer suicidal homicidal do not feel he has enough to be put on EE status. He will follow-up with [facility] and return precautions given Quality:SDOH Health Related Social Needs: No Data to Display Discharge Plan Disposition Patient Disposition: Home Specific Psychiatric Facility: [facility] Condition: Stable Condition: Stable Discharge Details Chief Complaint: PsychEval Clinical Impression: Depression Primary Care Provider: Unknown,Unknown ED Provider: Oliver Goodman Discharge Instructions Additional Instructions: Follow-up with her mental health clinicians and a primary care provider. If you have worsening thoughts of self-harm or harming others return to the emergency department for reevaluation
--- NOTE | 2024-10-18 12:59 | NUR.NOTE ---
Nursing Note: PT accepted to [facility] for placement, when pt heard he decided he wanted to leave the department and not go to [facility]. [facility] and this RN spoke with patient about leaving. Provider notified pt d/c from facility with instructions to F/U with PCP and [facility]
--- NOTE | 2024-10-18 14:12 | PDOC.MHPN2 ---
Date of service: 10/18/24 Time of Service: 10:15 PHQ-9 Over the last 2 weeks, how often have you been bothered by any of the following problems? 1. Little interest or pleasure in doing things: not at all 2. Feeling down, depressed, or hopeless: several days 3. Trouble falling or staying asleep, or sleeping too much: not at all 4. Feeling tired or having little energy: not at all 5. Poor appetite or overeating: not at all 6. Feeling bad about yourself - or that you are a failure or have let yourself and your family down: not at all 7. Trouble concentrating on things, such as reading the newspaper or watching television: not at all 8. Moving or speaking so slowly that other people could have noticed? - Or the opposite - being so fidgety or restless that you have been moving around a lot more than usual: not at all 9. Thoughts that you would be better off or of hurting yourself in some way: not at all Total score: 1 Source: Developed by Drs. Eliud Rose, Pepper Arreola, Carlitos Sanchez and colleagues, with an educational abbey from [employer]. Suicide Severity Rate CSSRS Have you wished you were or wished you could go to sleep and not wake up?: No Have you actually had any thoughts of killing yourself?: Yes CSSRS2 Have you been thinking about how you might do this?: Yes Have you had these thoughts and had some intention of acting on them?: No Have you started to work out or worked out the details of how to kill yourself? Do you intend to carry out this plan?: No CSSRS3 Have you ever done anything, started to do anything or prepared to do anything to end your life?: Yes CSSRS4 Was this within the past three months?: No Screening Score Total Score: 4 Screening: Positive Mental Health Emergency Note Release [facility] release signed:: Yes Reason for Visit client admits to feeling suicidal and homicidal but today he is not In the last 2 weeks has the pt presented for ES prior to today?: No Client Information Client is: Adult Outpatient Well Housed: No,status: Homeless Non Suicidal Self Injury Current: No History: yes, on occasion when people piss me off for no reason Risk: Does risk to harm exist?: yes. Access to means: Yes. Details: unsure as he is homeless . Duty to warn indicated: No Asssessment/Mental Status Appearance: Other (hospital scrubs) Attitude: Cooperative, Guarded and Friendly Behavior: Agitated Speech: Normal Affect: Cogruent with mood Mood: Anxious Thought process: Racing and Circumstational Hallucinations: No Delusions: No Attention: Unremarkable Perception: Not impaired Orientation: Fully orientated Memory: Intact Insight: Poor Judgement: Poor Neurovegetative Symptoms Sleep: Increase Appetitie: Increase Interests: No change Energy: No change Libido: Not applicable Substance Use: Other (rarely but on occasion) Additional Issues: Assaultive/Threatening Behavior: No Medical Concerns: No Client engaged in active self harm w/weapon: No Threatening to run away: No Child reported abuse/neglect: No Voluntarily presenting for services: Yes Domestic violence is a concern: No Extreme Psychosis or extreme behavior is present: No Impression Clinically would like to learn more coping skills and not feel the way he was previous feeling like suicidal or dangerous around others [facility] [place] [id number] and [facility] Plan/Disposition Recommended Disposition: [facility] Services [facility] Services: Therapy, Hospitalization facilities contacted and Therapy. Plan: Client will wait patiently to go inpatient at this time but may discharge himself if he feels he needs to escape Person reported agreement to plan: Yes Facilities contacted if Applicable [facility] Not accepted, No bed available [facility] Not accepted, No bed available, [facility] Not accepted, No bed available Reports/communication Outcome discussed with: ED/Personnel
== END 2024-10-18 12:57 | disposition home or self-care (01) ==
PROVIDERS: Physician Assistant; Emergency Provider Emergency Medicine
DX: F32.A Depression, unspecified (principal); F17.210 Nicotine dependence, cigarettes, uncomplicated
CPT/HCPCS: 00123; 80053; 80307; 96127; 99285; 80320; 80329; 81003; 84443; 85025

== ENCOUNTER 2025-05-15 16:09 | Emergency (ER) | payer MEDICAID, SELFPAY ==
[2025-05-15 16:19] VITALS: BP 119/66; PULSE 60; RESP 18; TEMP 36.6; O2SAT 96
--- NOTE | 2025-05-15 16:34 | ED.GENADUL_ITS ---
Discharge Plan Disposition Patient Disposition: Eloped Condition: Stable Discharge Details Clinical Impression: Discharge from penis Primary Care Provider: Unknown,Unknown ED Provider: Oliver Goodman Home Meds and New Rx's Prescriptions: No Action No Known Home Meds HPI General Mode of arrival: ambulatory . Date/Time Provider Initiated Documentation: 05/15/25 16:14 . Limitations to Documentation: no limitations . Information obtained by: patient . History of Present Illness 45 year old M presents to the emergency department with the chief complaint of urinary discharge, described as moderate, Patient started experiencing this day(s) (2) and it has been constant. No relieving factors improve symptom(s), No exacerbating factors reported . Patient notes denies fever/chills. Patient did receive the following treatments prior to arrival, none Related Data Home Medications ?Medication ?Instructions ?Recorded ?Confirmed Unknown [No Known Home Meds] 05/15/25 0 05/15/25 Allergies Allergy/AdvReac Type Severity Reaction Status Date / Time No Known Allergies Allergy Unverified 05/15/25 16:24 General Stated Complaint: Male Reproductive Problem LEXI: 4 Review of Systems All systems reviewed & are unremarkable except as noted in HPI and below Constitutional Constitutional: Denies chills, Denies fever(s) and Denies weakness Gastrointestinal Gastrointestinal: Denies abdominal pain and Denies vomiting Genitourinary Genitourinary: Reports penile discharge Neurologic Neurologic: Denies weakness Endocrine Endocrine: Denies cold intolerance and Denies heat intolerance Exam Const General: no acute distress Orientation: alert HENMT Head: normal to inspection Ears: external ears normal General nose exam: external nose normal Mouth: moist mucous membranes Eyes General: appearance normal, both eyes and all related structures Neck Neck: normal visual inspection Resp Effort & Inspection: normal respiratory effort and able to speak in complete sentences Cardio Rate: regular rate GI Palpation: soft and nontender Penis: normal penis Scrotum: scrotum normal Testes: normal, no testicular swelling and no testicular tenderness Skin General skin exam: no rashes or lesions noted Neuro General: patient alert and patient oriented x3 Extrem General: normal to inspection Psych Mental Status: mental status grossly normal Course Vital Signs Vital signs: Vital Signs Temperature 36.6 C 05/15/25 16:19 Pulse 60 05/15/25 16:19 Respiratory Rate 18 05/15/25 16:19 Blood Pressure 119/66 05/15/25 16:19 Pulse Oximetry 96 05/15/25 16:19 Temperature 36.6 C 05/15/25 16:19 Temperature Source Oral 05/15/25 16:19 Pulse 60 05/15/25 16:19 Respiratory Rate 18 05/15/25 16:19 Blood Pressure 119/66 05/15/25 16:19 Blood Pressure Position Sitting 05/15/25 16:19 Pulse Oximetry 96 05/15/25 16:19 Oxygen Delivery Method Room Air 05/15/25 16:19 Oxygen Flow Rate 0 05/15/25 16:19 Medical Decision Making 45-year-old male comes in with complaints of 2 days of urinary burning and states he has discharge from his penis. He also had testicle pain yesterday but none today. Denies any fevers or chills and otherwise feels well. He denies being sexually active. He has no discharge from his penis on exam there is no penile swelling or tenderness, there is no testicle swelling or tenderness. Given his complaint we will check a UA and also a GC chlamydia. Given his lack of testicle tenderness now I do not feel ultrasound indicated, he could have developing orchitis based on his complaint patient eloped, attempted to call to discuss returning for treatment with ceftriaxone/doxy but he did not answer, message left. Differential Diagnosis Differential Diagnosis: uti, orchitis, std PFSH All Active Problems (Updated 05/15/25 @ 17:47 by Oliver Goodman MD) Discharge from penis (Acute) Opiate addiction (Acute) Major depression (Chronic) Medical History (Updated 05/15/25 @ 17:47 by Oliver Goodman MD) Depression Opiate overdose Surgical History (Updated 12/01/20 @ 12:16 by Yari Monteiro DO) No significant past surgical history Social History Smoking/Tobacco Use Status: Current every day Tobacco Type: cigarettes Smoking risk assessment performed?: Yes Alcohol Intake: current Alcohol Intake frequency: a few times a month Drug use: Occasionally Substance use type: marijuana, crack/cocaine, heroin and opiates Details: Used crack 05/14 Housing: homeless Do you feel safe at home: Yes (Currently Homeless) Do you feel safe in your relationship?: Yes Additional Social history: Currently homeless, Sister will not let patient stay with her. PAWSS Have you Been Recently Intoxicated or Drunk Within the Last 30 days?: Yes Have you Ever Experienced Previous Episodes of Alcohol Withdrawal?: No Have you ever Experienced Withdrawal Seizures?: No Have you ever Experienced Delirium Tremens(DT)s?: No Have you ever undergone Alcohol Rehabilitation Treatment (i.e, inpt ot outpatient treatment programs)?: No Have you ever Experienced Blackouts?: No Have you ever Combined Alcohol with other Downers within the last 90 days?: No Have you ever Combined Alcohol with any other Substance of Abuse during the last 90 days?: No Positive Blood Alcohol level on Presentation? [PCS.BAL]: No Evidence of Increased Autonomic Activity (i.e. HR>120, tremor, sweating, agitation, nausea)?: No Result: 1
[2025-05-15 16:48] LABS: Glucose 100 mg/dL (Negative)
[2025-05-17 12:35] LABS: Chlamydia Result Negative (Negative); GC Result Negative (Negative)
== END 2025-05-15 18:02 | disposition left against medical advice (07) ==
PROVIDERS: Emergency Provider Emergency Medicine
DX: R30.0 Dysuria; R36.0 Urethral discharge without blood; Z53.20 Procedure and treatment not carried out because of patient's decision for unspecified reasons
CPT/HCPCS: 99283; 99282; 87491; 87591; 81003